=== PATIENT | female | born 1950 | race Two or more races ===

== ENCOUNTER 2019-02-20 12:06 | Outpatient (CLI) | payer OTHER | END 2019-02-20 12:10 | disposition home or self-care (01) | LOC: LAB 12:06 | DX: N20.0 Calculus of kidney (principal) ==

== ENCOUNTER 2019-03-05 07:44 | Outpatient (CLI) | payer OTHER | END 2019-03-05 07:46 | disposition home or self-care (01) | LOC: TOM 07:44 | DX: R31.0 Gross hematuria (principal) | CPT/HCPCS: 74178; Q9965 ==

== ENCOUNTER 2019-04-03 11:28 | Outpatient (CLI) | payer OTHER | END 2019-04-03 15:00 | disposition home or self-care (01) | LOC: LAB 11:28 | DX: N20.2 Calculus of kidney with calculus of ureter (principal) ==

== ENCOUNTER 2019-04-05 10:06 | Outpatient (CLI) | payer OTHER | END 2019-04-05 10:11 | disposition home or self-care (01) | LOC: TOM 10:06 | DX: R31.0 Gross hematuria (principal) | CPT/HCPCS: 72193; Q9965 ==